=== PATIENT | male | born 1955 | race Caucasian/White ===

== ENCOUNTER 2017-03-24 05:57 | Emergency (ER) | payer OTHER ==
[~2017-03-24] VITALS: Ht 185.4 cm; Wt 70.0 kg
[2017-03-24 06:12] VITALS: Ht 185.4 cm; Wt 70.0 kg
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
--- NOTE | 2017-03-24 09:38 | RADRPT ---
PROCEDURE: WRIST RADIOGRAPH CLINICAL INDICATION: Trauma. TECHNIQUE: PA, lateral and oblique views of the left wrist were performed. COMPARISON: None. FINDINGS: There are chronic deformities of the distal radius and ulnar styloid with associated healing changes . There is associated ulnocarpal abutment. Degenerative changes are noted at the radiocarpal joint. There is also a chronic deformity of the metacarpal shaft. There is a bony spur arising from the def ormity which may be secondary to fracture or enchondroma. There is diffuse soft tissue swelling arou nd the wrist. IMPRESSION: 1. Chronic fracture of the ulnar styloid process and the distal radius with healing changes. There i s associated ulnocarpal abutment. 2. Degenerative changes of the radial carpal joint. 3. Chronic healed fracture of the fifth metacarpal bone. RPTAT: [facility] .Shravan Arriaga MD, Date Time Electronically viewed and signed by .Shravan Arriaga MD, on 03/24/2017 09:38 .Z/
== END 2017-03-24 11:45 ==
LOC: E/R 05:57
DX: S52.612G Displaced fracture of left ulna styloid process, subsequent encounter for closed fracture with delayed healing (principal); S52.502G Unspecified fracture of the lower end of left radius, subsequent encounter for closed fracture with delayed healing; F17.210 Nicotine dependence, cigarettes, uncomplicated; X58.XXXA Exposure to other specified factors, initial encounter; Y92.9 Unspecified place or not applicable